=== PATIENT | male | born 1960 | race Caucasian/White ===

== ENCOUNTER 2019-03-20 10:46 | Emergency (ER) | payer OTHER ==
[~2019-03-20] VITALS: Ht 175.3 cm; Wt 102.1 kg
== END 2019-03-20 14:16 | disposition home or self-care (01) ==
LOC: ER 10:46
DX: M25.562 Pain in left knee (principal); S83.8X2S Sprain of other specified parts of left knee, sequela; X50.0XXS Overexertion from strenuous movement or load, sequela